=== PATIENT | female | born 1960 | race Caucasian/White ===

== ENCOUNTER 2018-02-21 08:04 | Emergency (ER) | payer OTHER ==
[~2018-02-21 08:04] MED LIST: LOES1TAB2 PO; PROM25R PR; ULTR50TA PO
[2018-02-21 08:06] VITALS: BP 137/73; PULSE 90; RESP 20; TEMP 97.7; O2SAT 99
--- NOTE | 2018-02-21 09:46 | PD ---
HPI Chief Complaint: Injury Time Seen by Provider: 09:03 Travel History International Travel<30 days: No Contact w/Intl Traveler<30days: No Traveled to known affect area: No History of Present Illness HPI 57-year-old female complains of pain in the right knee and right hand. She tripped walking up stairs. Patient landed on the right knee and right hand causing sudden onset severe pain. Ecchymosis and swelling reported. Patient takes aspirin twice daily. No head trauma or injury elsewhere. Patient was ambulatory immediately afterwards. There is a constant pain now. It is worse with palpation range of motion. PFSH Past Medical History Cancer: Yes (2007 COLON CANCER) Cardiovascular Problems: No Diabetes: No Diminished Hearing: No Hepatitis: No Hiatal Hernia: No Hypertension: No Medical other: No Respiratory: No Thyroid Disease: No Past Surgical History Abdominal Surgery: Yes (2007 RIGHT HEMICOLECTOMY) Cardiac Surgery: No Cholecystectomy: Yes (2011) Endocrine Surgery: No Genitourinary Surgery: Yes (1963 YV PLASTY (BLADDER) Gynecologic Surgery: Yes (1991 ; 1993 D&C) Neurologic Surgery: No Oral Surgery: Yes (1978 TONSILLECTOMY) Pacemaker: No Thoracic Surgery: No Other Surgery: Yes Social History Alcohol Use: Yes (OCCASIONAL) Tobacco Use: No Substance Use: No Allergies-Medications (Allergen,Severity, Reaction): Coded Allergies: ampicillin (Unverified Allergy, Severe, rash, 05/16/17) codeine (Unverified Allergy, Severe, vomiting, 05/16/17) latex (Unverified Allergy, Intermediate, contact dermatitis, 05/16/17) Reported Meds & Prescriptions Reported Meds & Active Scripts Active Reported Phenergan 25 Mg Supp (Promethazine Hcl) 25 Mg Supp 25 Mg RI Q6-8HPRN Ultram (Tramadol HCl) 50 Mg Tab 50 Mg PO Q4HPRN 1 -2 tablets as needed for pain Loestrin Fe 1/20 (Ethinyl Estradiol/Norethindron/Iron) 28 Tab Pack 1 Tab PO DAILY Review of Systems Except as stated in HPI: all other systems reviewed are Neg General / Constitutional: No: Fever Physical Exam Narrative GENERAL: 57-year-old female pleasant well-nourished well-developed Vital Signs Date Time Temp Pulse Resp B/P (MAP) Pulse Ox O2 Delivery O2 Flow Rate FiO2 02/21/18 08:06 97.7 90 20 137/73 (94) 99 SKIN: Warm and dry. HEAD: Atraumatic. Normocephalic. NECK: Trachea midline. No JVD. CARDIOVASCULAR: Regular rate and rhythm. RESPIRATORY: No accessory muscle use. Clear to auscultation. Breath sounds equal bilaterally. GASTROINTESTINAL: Abdomen soft, non-tender, nondistended. Hepatic and splenic margins not palpable. MUSCULOSKELETAL: Extremities without clubbing, cyanosis, or edema. There is ecchymosis about the tibial tuberosity on the right side. There is ecchymosis and swelling about the metacarpophalangeal articulations numbers 4 and 5 on the right side. There is no gross deformity otherwise. NEUROLOGICAL: Awake and alert. No obvious cranial nerve deficits. Motor grossly within normal limits. Five out of 5 muscle strength in the arms and legs. Normal speech. Data Data Last Documented VS Vital Signs Date Time Temp Pulse Resp B/P (MAP) Pulse Ox O2 Delivery O2 Flow Rate FiO2 02/21/18 08:06 97.7 90 20 137/73 (94) 99 Orders Orders Hand, Complete ([id number]) (02/21/18 ) Knee, Complete (4vws) (02/21/18 09:08) Ice/Cold Pack (02/21/18 09:29) Ed Discharge Order (02/21/18 10:34) MDM Medical Decision Making Medical Screen Exam Complete: Yes Emergency Medical Condition: Yes Medical Record Reviewed: Yes Differential Diagnosis Fracture, contusion, abrasion Narrative Course Imaging unremarkable Pt ready for discharge home OK for return to work today Diagnosis Primary Impression: Fall Qualified Codes: W19.XXXS - Unspecified fall, sequela Additional Impressions: Contusion of right tibia Contusion of hand, right Qualified Codes: S60.221A - Contusion of right hand, initial encounter Med/Other Pt SpecificInfo: No Change to Meds Disposition: 01 DISCHARGE HOME Condition: Stable Espinoza Whitney MD February 21, 2018 09:46
--- NOTE | 2018-02-21 10:11 | RADRPT ---
EXAM DATE: 02/21/2018 10:05 AM EDT AGE/SEX: 57 years / Female INDICATIONS: Right knee post fall. CLINICAL DATA: This is the patient's initial encounter. Patient reports that signs and symptoms have been present for 1 day and indicates a pain score of 7/10. MEDICAL/SURGICAL HISTORY: None. None. COMPARISON: No prior [facility] exams available for comparison. FINDINGS: Bony structures are intact and in normal alignment. Joints are intact without dislocation or signifi cant arthropathy. Osseous density is normal. Soft tissues are unremarkable. No radiopaque foreign bodies seen. CONCLUSION: No acute abnormality is seen. Electronically signed by: Daniele Pelayo MD 02/21/2018 10:10 AM EDT
--- NOTE | 2018-02-21 10:22 | RADRPT ---
EXAM DATE: 02/21/2018 10:07 AM EDT AGE/SEX: 57 years / Female INDICATIONS: Right lateral hand pain post fall CLINICAL DATA: This is the patient's initial encounter. Patient reports that signs and symptoms have been present for 1 day and indicates a pain score of 8/10. MEDICAL/SURGICAL HISTORY: None. None. COMPARISON: No prior [facility] exams available for comparison. FINDINGS: Bony structures are intact and in normal alignment. Osseous density is normal. Soft tissues are unr emarkable. No radiopaque foreign bodies seen. CONCLUSION: 1. No acute fracture or dislocation. Electronically signed by: Abner Nelson MD 02/21/2018 10:20 AM EDT
== END 2018-02-21 10:49 | disposition home or self-care (01) ==
LOC: NEPD 08:04
DX: S80.11XA Contusion of right lower leg, initial encounter (principal); S60.221A Contusion of right hand, initial encounter; W10.9XXA Fall (on) (from) unspecified stairs and steps, initial encounter
CPT/HCPCS: 73130; 73564; 99283